=== PATIENT | female | born 1960 | race Caucasian/White ===

== ENCOUNTER → 2017-07-28 | Outpatient (CLI) | payer BC ==
--- NOTE | 2017-07-28 16:40 | XCELERA REPORT ---
[address] [address] Lower Extremity Arterial Evaluation Name: ALLEY ZABALA Age: 57 yrs Gender: Female : 1960 Patient Status: Outpatient Patient Location: Study Date: 07/28/2017 03:03 PM Procedure: A color flow and duplex scan of the lower extremity arteries was performed bilaterally with velocity and waveform anaylsis. Reason For Study: NUMBNESS, TINGLING Ordering Physician: JACQUELINE CRUZ Performed By: Lauren Valladares Measurements and Calculations Right Left MANAGER QUALITY SYSTEMS PSV 93.3 97.6 cm/sec Prox PFA PSV -55.6 -59.8 cm/sec Prox SFA PSV 99.7 95.8 cm/sec Mid SFA PSV -73.9 -74.6 cm/sec Dist SFA PSV -55.2 -48.6 cm/sec Prox Pop A PSV 40.6 46.0 cm/sec Dist CELSO PSV 51.2 58.9 cm/sec Dist ZMT OPERATOR PSV 44.5 40.5 cm/sec Abdirahman Pedis PSV 36.7 48.3 cm/sec Right Side Arterial Evaluation Normal velocity and triphasic waveforms noted from the Common Femoral artery to the infregeniculate vessels. 0 % stenosis. Ankle Brachial index is 1.2. Left Side Arterial Evaluation Normal velocity and triphasic waveforms noted from the Common Femoral artery to the infregeniculate vessels. 0 % stenosis. Ankle Brachial index is 1.1. Interpretation Summary No hemodynamically significant lesions in the bilateral lower extremities, on duplex imaging, at rest. : JACQUELINE CRUZ [place]
== END ==
LOC: SP 14:55
PROVIDERS: ATTEND Family Medicine
DX: R20.2 Paresthesia of skin (principal)
CPT/HCPCS: 93925

== ENCOUNTER 2018-04-19 11:41 | Emergency (ER) | payer BC ==
--- NOTE | 2018-04-19 12:35 | ER Document Report ---
ED Extremity Problem, Lower - General Chief Complaint: Leg Pain Stated Complaint: LEG PAIN Time Seen by Provider: 04/19/18 12:26 Mode of Arrival: Ambulatory Information source: Patient Notes: Chief complaint: Right leg swelling History of complain:( obtained from----patient) 57 years old female with a history of DVT, PE, on Xarelto, presents today with swelling over the right calf than feeling a palpable vein. Therefore present to the ED. No shortness of breath, denies any calf pain. No fever chills or other constitutional symptoms Onset: Gradual Duration: Last 2 days Severity: Moderate Quality: Sharp Context: As above Exacerbating factor and relieving factors: As above REVIEW OF SYSTEMS: CONSTITUTIONAL : Denies fever, chills, or sweats. Denies recent illness. EENT: Denies eye, ear, throat, or mouth pain or symptoms. Denies nasal or sinus congestion or discharge. Denies throat, tongue, or mouth swelling or difficulty swallowing. CARDIOVASCULAR: Denies chest pain. Denies palpitations or racing or irregular heart beat. Denies ankle edema. RESPIRATORY: Denies cough, cold, or chest congestion. Denies shortness of breath, difficulty breathing, or wheezing. GASTROINTESTINAL: Denies distention. Denies nausea, vomiting, or diarrhea. Denies blood in vomitus, stools, or per rectum. Denies black, tarry stools. Denies constipation. GENITOURINARY: Denies difficulty urinating, painful urination, burning, frequency, blood in urine, or discharge. FEMALE GENITOURINARY: Denies vaginal bleeding, heavy or abnormal periods, irregular periods. Denies vaginal discharge or odor. MUSCULOSKELETAL: Denies back or neck pain or stiffness. Denies joint pain or swelling. SKIN: Denies rash, lesions or sores. HEMATOLOGIC : Denies easy bruising or bleeding. LYMPHATIC: Denies swollen, enlarged glands. NEUROLOGICAL: Denies confusion or altered mental status. Denies passing out or loss of consciousness. Denies dizziness or lightheadedness. Denies headache. Denies weakness or paralysis or loss of use of either side. Denies problems with gait or speech. Denies sensory loss, numbness, or tingling. Denies seizures. PSYCHIATRIC: Denies anxiety or stress. Denies depression, suicidal ideation, or homicidal ideation. ALL OTHER SYSTEMS REVIEWED AND NEGATIVE. PHYSICAL EXAMINATION: GENERAL: Well-appearing, well-nourished and in no acute distress. HEAD: Atraumatic, normocephalic. EYES: Pupils equal round and reactive to light, extraocular movements intact, conjunctiva are normal. ENT: Nares patent, oropharynx clear without exudates. Moist mucous membranes. NECK: Normal range of motion, supple without lymphadenopathy LUNGS: Breath sounds clear to auscultation bilaterally and equal. No wheezes rales or rhonchi. HEART: Regular rate and rhythm without murmurs ABDOMEN: Soft, nontender, nondistended abdomen. No guarding, no rebound. No masses appreciated. Examination of genitals-deferred Musculoskeletal: Normal range of motion, no pitting or edema. No cyanosis. Right leg has a palpable superficial vein NEUROLOGICAL: Cranial nerves grossly intact. Normal speech, normal gait. Normal sensory, motor exams PSYCH: Normal mood, normal affect. SKIN: Warm, Dry, normal turgor, no rashes or lesions noted. Dictation was performed using [employer] voice recognition software TRAVEL OUTSIDE OF THE [place] IN LAST 30 DAYS: No - HPI Notes: Dictated - Related Data Allergies/Adverse Reactions: Penicillins Allergy (Verified 04/19/18 11:42) Past Medical History - Social History Smoking Status: Current Every Day Smoker Frequency of alcohol use: None Drug Abuse: None Lives with: Family Family History: Reviewed & Not Pertinent Patient has suicidal ideation: No Patient has homicidal ideation: No - Past Medical History Cardiac Medical History: Reports: Hx Hypertension Renal/ Medical History: Denies: Hx Peritoneal Dialysis - Immunizations Hx Diphtheria, Pertussis, Tetanus Vaccination: Yes Review of Systems - Review of Systems Notes: Dictated Physical Exam - Vital signs Vitals: Temp Pulse Resp BP Pulse Ox 98.1 F 84 16 141/92 H 97 04/19/18 11:44 04/19/18 11:44 04/19/18 11:44 04/19/18 11:44 04/19/18 11:44 - Notes Notes: Dictated Course - Vital Signs Vital signs: Temp Pulse Resp BP Pulse Ox 98.1 F 84 16 141/92 H 97 04/19/18 11:44 04/19/18 11:44 04/19/18 11:44 04/19/18 11:44 04/19/18 11:44 - Diagnostic Test Radiology reviewed: Reports reviewed - Doppler studies of the right leg did not show any DVT Discharge - Discharge Clinical Impression: Left leg swelling Condition: Fair Disposition: HOME, SELF-CARE Instructions: Possible Evolving Leg DVT ([facility]) Referrals: JACQUELINE CRUZ MD [Primary Care Provider] - Follow up as needed
--- NOTE | 2018-04-19 14:26 | RADIOLOGY REPORT (SQ) ---
EXAM DESCRIPTION: VENOUS UNILATERAL LOWER COMPLETED DATE/TIME: 04/19/2018 2:09 pm REASON FOR STUDY: DVT right leg COMPARISON: None. TECHNIQUE: Dynamic and static chang scale and color images acquired of the right leg venous system. S elected spectral images acquired with additional compression and augmentation maneuvers. The contrala teral common femoral vein and saphenofemoral junction were also imaged. Images stored on PACS. LIMITATIONS: None. FINDINGS: RIGHT COMMON FEMORAL: Normal phasicity, compression and augmentation. No visualized echogenic material on g ray scale. No defects on color images. FEMORAL: Normal compression and augmentation. No visualized echogenic material on chang scale. No defe cts on color images. POPLITEAL: Normal compression, augmentation. No visualized echogenic material on chang scale. No defec ts on color images. PERONEAL AND POSTERIOR TIBIAL VEINS: Normal compression, augmentation. No visualized echogenic materi al on chang scale. No defects on color images. GSV and SSV: Normal compression, augmentation. No visualized echogenic material on chang scale. No def ects on color images. ANY DEEP VENOUS INSUFFICIENCY: Not evaluated. ANY EVIDENCE OF POPLITEAL CYST: No. OTHER: No other significant finding. LEFT COMMON FEMORAL VEIN AND SAPHENOFEMORAL JUNCTION: Normal phasicity, compression and augmentation. No visualized echogenic material on chang scale. No de fects on color images. IMPRESSION: NO EVIDENCE OF DVT OR SVT IN THE RIGHT LEG. TECHNICAL DOCUMENTATION: JOB ID: [id number] [employer]- All Rights Reserved Reading location - IP/workstation name: [email or web address]
[2018-04-19 14:28] VITALS: BP 140/97
== END 2018-04-19 14:28 | disposition home or self-care (01) ==
LOC: ER 11:41
DX: M79.89 Other specified soft tissue disorders (principal); F17.200 Nicotine dependence, unspecified, uncomplicated; I10 Essential (primary) hypertension; I26.99 Other pulmonary embolism without acute cor pulmonale; I82.409 Acute embolism and thrombosis of unspecified deep veins of unspecified lower extremity; Z79.01 Long term (current) use of anticoagulants; Z88.0 Allergy status to penicillin
CPT/HCPCS: 93971; 99283

== ENCOUNTER 2018-07-19 17:03 | Emergency (ER) | payer BC ==
--- NOTE | 2018-07-19 18:34 | RADIOLOGY REPORT (SQ) ---
EXAM DESCRIPTION: CHEST 2 VIEWS COMPLETED DATE/TIME: 07/19/2018 6:12 pm REASON FOR STUDY: cough COMPARISON: 04/27/2016 TECHNIQUE: Frontal and lateral radiographic views of the chest acquired. NUMBER OF VIEWS: Two view. LIMITATIONS: None. FINDINGS: LUNGS AND PLEURA: No pneumothorax. Patchy consolidation in the right middle lobe. No ple ural effusion. MEDIASTINUM AND HILAR STRUCTURES: Stable. HEART AND VASCULAR STRUCTURES: Stable. BONES: No acute findings. HARDWARE: None in the chest. OTHER: No other significant finding. IMPRESSION: Patchy consolidation in the right middle lobe. No pleural effusion. TECHNICAL DOCUMENTATION: JOB ID: [id number] [id number] 2010 [employer]- All Rights Reserved Reading location - IP/workstation name: [email or web address]
--- NOTE | 2018-07-19 19:11 | ER Document Report ---
ED Medical Screen (RME) - General Chief Complaint: Productive Cough Stated Complaint: COUGHING UP BLOOD Time Seen by Provider: 07/19/18 19:00 Mode of Arrival: Ambulatory Information source: Patient Notes: 57-year-old female with hypertension, peripheral vascular disease, neuropathy, [id number] smoking history, pulmonary embolism (sometimes takes her Xarelto) presents with complaint of 3 weeks of cough that she describes as productive with hemoptysis that started today. Patient has had prior similar symptoms when diagnosed with a pulmonary embolism 2 years ago. She denies fever, chills, chest pain, shortness of breath. She states that she took a week's worth of Bactrim that she had leftover 2 weeks ago. Patient states that she has not been taking her Xarelto but started 2 days ago for the new year. And in triage does show a right middle lobe opacity. Ceftriaxone started for antibiotic coverage. Patient has not been hospitalized in the last 3 months. I have greeted and performed a rapid initial assessment of this patient. A comprehensive ED assessment and evaluation of the patient, analysis of test results and completion of medical decision making process we will be contacted by additional ED providers. PHYSICAL EXAMINATION: Vital signs reviewed-afebrile GENERAL: Well-appearing, well-nourished and in no acute distress. LUNGS: Coarse breath sounds bilaterally Musculoskeletal: Normal range of motion NEUROLOGICAL: Normal speech, normal gait. PSYCH: Normal mood, normal affect. SKIN: Warm, Dry, normal turgor, no rashes or lesions noted. TRAVEL OUTSIDE OF THE [place] IN LAST 30 DAYS: No - HPI Onset: Other Onset/Duration: Persistent Quality of pain: Burning Associated Symptoms: Body/muscle aches, Cough (productive). denies: Chest pain, Fever, Nausea, Shortness of breath Exacerbated by: Coughing Relieved by: Denies Similar symptoms previously: Yes Recently seen / treated by doctor: No - Related Data Smoking: Cigarettes Frequency of alcohol use: None Drug Abuse: None Allergies/Adverse Reactions: Penicillins Allergy (Verified 07/19/18 17:04) Past Medical History - Past Medical History Cardiac Medical History: Reports: Hx Hypertension Renal/ Medical History: Denies: Hx Peritoneal Dialysis - Immunizations Hx Diphtheria, Pertussis, Tetanus Vaccination: Yes Physical Exam - Vital signs Vitals: Temp Pulse Resp BP Pulse Ox 98.6 F 72 16 135/94 H 98 07/19/18 17:08 07/19/18 17:08 07/19/18 17:08 07/19/18 17:08 07/19/18 17:08 Course - Vital Signs Vital signs: Temp Pulse Resp BP Pulse Ox 98.6 F 72 16 135/94 H 98 07/19/18 17:08 07/19/18 17:08 07/19/18 17:08 07/19/18 17:08 07/19/18 17:08 Doctor's Discharge - Discharge Referrals: JACQUELINE CRUZ MD [Primary Care Provider] - Follow up as needed
[2018-07-19] MEDS ORDERED: CEFTRIAXONE 1 GM/D5W RTU 1 GM/50 ML RTUPB IV ONE (19:12)
[2018-07-19] MEDS ORDERED: IPRATROPIUM/ALBUTEROL 0.5-2.5 MG/3 ML AMPUL NEB ONE ×2 (19:13→21:53)
[2018-07-19 20:04] LABS: VENOUS BLOOD BASE EXCESS 5.2 mmol/L; VENOUS BLOOD HCO3 32.7 mmol/L (20-32); VENOUS BLOOD PCO2 57.9 mmHg (35-63); VENOUS BLOOD PH 7.37 (7.30-7.42)
[2018-07-19 20:11] LABS: ABSOLUTE EOSINOPHILS # (AUTO) 0.1 10^3/uL (0.0-0.6); ABSOLUTE MONOCYTES (AUTO) 0.8 10^3/uL (0.1-1.4); ABSOLUTE NEUT (AUTO) 8.5 10^3/uL (1.7-8.2); BASOPHILS % (AUTO) 0.2 % (0-2); EOSINOPHILS % (AUTO) 0.9 % (0-6); HEMATOCRIT 46.8 % (36.0-47.0); HEMOGLOBIN 16.3 g/dL (12.0-15.5); LYMPHOCYTES % (AUTO) 17.5 % (13-45); MEAN CORPUSCULAR HEMOGLOBIN 38.9 pg (27.0-33.4); MEAN CORPUSCULAR HGB CONC 34.8 g/dL (32.0-36.0); MONOCYTES % (AUTO) 6.6 % (3-13); PLATELET COUNT 209 10^3/uL (150-450); RED BLOOD COUNT 4.19 10^6/uL (3.72-5.28); RED CELL DISTRIBUTION WIDTH 15.6 % (11.5-14.0); SEGMENTED NEUTROPHILS % (AUTO) 74.8 % (42-78); TOTAL CELLS COUNTED % (AUTO) 100 %; WHITE BLOOD COUNT 11.4 10^3/uL (4.0-10.5)
[2018-07-19 20:25] LABS: MEAN CORPUSCULAR VOLUME 112 fl (80-97)
[2018-07-19 20:29] LABS: ALANINE AMINOTRANSFERASE 25 U/L (9-52); ALBUMIN 3.4 g/dL (3.5-5.0); ALKALINE PHOSPHATASE 96 U/L (38-126); ANION GAP 6 (5-19); ASPARTATE AMINO TRANSFERASE 31 U/L (14-36); BILIRUBIN,DIRECT 0.3 mg/dL (0.0-0.4); BILIRUBIN,TOTAL 1.6 mg/dL (0.2-1.3); BLOOD UREA NITROGEN 10 mg/dL (7-20); CALCIUM 8.8 mg/dL (8.4-10.2); CARBON DIOXIDE 32 mmol/L (22-30); CHLORIDE 96 mmol/L (98-107); GLUCOSE 104 mg/dL (75-110); POTASSIUM 4.3 mmol/L (3.6-5.0); TOTAL PROTEIN 6.5 g/dL (6.3-8.2)
[2018-07-19 20:36] LABS: ANISOCYTOSIS SLIGHT; PLATELET COMMENT ADEQUATE
[2018-07-19 20:37] LABS: PLATELET LARGE PRESENT; POIKILOCYTOSIS SLIGHT; TEAR DROP CELLS SLIGHT
[2018-07-19 20:40] LABS: POLYCHROMASIA SLIGHT
[2018-07-19 20:41] LABS: TARGET CELLS SLIGHT
--- NOTE | 2018-07-19 21:40 | RADIOLOGY REPORT (SQ) ---
CT CHEST ANGIOGRAPHY WITHOUT THEN WITH IV CONTRAST HISTORY: Shortness of breath. Evaluate for pulmonary embolism. COMPARISON: None. TECHNIQUE: CT angiogram of the chest with IV contrast. 3-D MIP images were obtained in coronal and sagittal reconstructions. This exam was performed according to our departmental dose-optimization program, which includes automated exposure control, adjustment of the mA and/or kV according to patient size and/or use of iterative reconstruction technique. FINDINGS: The thyroid gland is unremarkable. No mediastinal, hilar, or axillary adenopathy is seen. The heart size is normal. No pericardial effusion is seen. No acute pulmonary embolism is seen in the main or segmental branches. There is an area of groundglass opacity and consolidation in the right middle lobe suggesting infection. No pleural effusions or pneumothorax however. Limited views of the upper abdomen demonstrate a small hiatal hernia and hepatic steatosis. The osseous structures are intact. IMPRESSION: 1. No acute pulmonary embolism. 2. Consolidation in the right middle lobe suggesting pneumonia. 3. No pleural effusions or pneumothorax.
--- NOTE | 2018-07-19 21:46 | ER Document Report ---
ED General - General Chief Complaint: Productive Cough Stated Complaint: COUGHING UP BLOOD Time Seen by Provider: 07/19/18 19:00 Mode of Arrival: Ambulatory Notes: Patient is a 57-year-old female who presents to the emergency department with a chief complaint of coughing up blood. She states that she has had a cough for the past 3 weeks, but today she started coughing up blood. She states that there was a tinge of blood in her sputum. 2 years ago in April she had the same symptoms of coughing up blood, and was diagnosed with a blood clot. She is on Xarelto chronically, but stopped taking her Xarelto on her own and restarted taking her Xarelto yesterday. She denies any shortness of breath, vomiting, diarrhea, abdominal pain. She has a past medical history of hypertension, peripheral vascular disease, and tobacco abuse via smoking. She smokes half a pack a day and has been for the past 35 years. TRAVEL OUTSIDE OF THE [place] IN LAST 30 DAYS: No - Related Data Allergies/Adverse Reactions: Penicillins Allergy (Verified 07/19/18 17:04) Past Medical History - General Information source: Patient - Social History Smoking Status: Current Every Day Smoker Chew tobacco use (# tins/day): No Frequency of alcohol use: None Drug Abuse: None Family History: Reviewed & Not Pertinent Patient has suicidal ideation: No Patient has homicidal ideation: No - Past Medical History Cardiac Medical History: Reports: Hx Hypertension Renal/ Medical History: Denies: Hx Peritoneal Dialysis - Immunizations Hx Diphtheria, Pertussis, Tetanus Vaccination: Yes Review of Systems - Review of Systems Notes: REVIEW OF SYSTEMS: CONSTITUTIONAL : Denies recent illness. Denies recent unintentional weight loss. Denies fever, chills, or sweats. EENT: Denies eye, ear, throat, or mouth pain, discharge, or symptoms. Denies nasal or sinus congestion. CARDIOVASCULAR: Denies chest pain. RESPIRATORY: See HPI GASTROINTESTINAL: Denies nausea, vomiting, and diarrhea. Denies abdominal pain. Denies constipation. GENITOURINARY: Denies difficulty urinating, burning, blood in urine, urgency or frequency. MUSCULOSKELETAL: Denies neck and back pain. Denies joint pain or swelling. SKIN: Denies rash, itchiness, or lesions HEMATOLOGIC : Denies easy bruising or bleeding. LYMPHATIC: Denies swollen, painful, enlarged glands. NEUROLOGICAL: Denies no numbness or tingling denies weakness. Denies headache. Denies altered mental status. Denies alteration in speech. PSYCHIATRIC: Denies stress, anxiety, alteration in sleep patterns, or depression. All other systems reviewed and negative. Physical Exam - Vital signs Vitals: Temp Pulse Resp BP Pulse Ox 98.6 F 72 16 135/94 H 98 07/19/18 17:08 07/19/18 17:08 07/19/18 17:08 07/19/18 17:08 07/19/18 17:08 - Notes Notes: PHYSICAL EXAMINATION: GENERAL: Appears well, healthy, well-nourished, no acute distress. HEAD: Normocephalic, atraumatic. EYES: PERRL, conjunctiva normal, all extraocular movements intact, sclera nonicteric ENT: Moist mucous membranes. NECK: Supple, no noticeable swelling, redness, rash. Normal range of motion. LUNGS: Wheezes noted bilaterally. Coarse breath sounds to right posterior chest in the middle and lower lobes. CARDIOVASCULAR: S1-S2, regular rate, regular rhythm. Radial pulses 2+, normal. ABDOMEN: Normoactive bowel sounds. Soft, nontender, no guarding, no rebound tenderness, and no masses palpated. EXTREMITIES: Normal strength and range of motion, no pitting or edema. No cyanosis. NEUROLOGICAL: Moves all extremities upon command. Strength 5/5 in all extremities. PSYCH: Normal mood, normal affect. SKIN: Warm, dry. No rash, lesions, ulcerations noted. Normal skin turgor. Course - Re-evaluation Re-evalutation: Based off patient's history and physical, differential diagnosis includes pneumonia, pulmonary embolism, empyema, bronchitis. 07/19/18 21:49 Patient's chest x-ray shows she does have pneumonia to the right middle lobe. Her physical exam is consistent with this, with coarse breath sounds to the right middle lobe. She has received 1 DuoNeb treatment and I will order another treatment for her. 07/19/18 21:55 Patient's lung sounds have improved slightly after her second DuoNeb treatment. I suspect that she will not have complete resolution of her respiratory symptoms until she finishes a course of antibiotics. I have educated the patient on this. Patient's CT of the chest shows pneumonia to the right middle lobe also. There is no acute pulmonary embolism. These results have been given to the patient. She will be sent home on antibiotics. Her curb 65 score is 0. She is at low risk for mortality from community-acquired pneumonia. Verbal discharge instructions were given to the patient. They verbalized understanding. They are stable for discharge. - Vital Signs Vital signs: Temp Pulse Resp BP Pulse Ox 98.5 F 92 16 132/76 H 97 07/19/18 22:11 07/19/18 22:11 07/19/18 22:11 07/19/18 22:11 07/19/18 22:11 - Laboratory Result Diagrams: 07/19/18 19:37 07/19/18 19:37 Laboratory results interpreted by me: 07/19/18 07/19/18 07/19/18 19:37 19:37 19:37 WBC 11.4 H Hgb 16.3 H MCV 112 H MCH 38.9 H RDW 15.6 H Absolute Neutrophils 8.5 H VBG HCO3 32.7 H Sodium 134.0 L Chloride 96 L Carbon Dioxide 32 H Total Bilirubin 1.6 H Albumin 3.4 L Discharge - Discharge Clinical Impression: Cough Pneumonia Qualifiers: Pneumonia type: due to unspecified organism Laterality: right Lung location: middle lobe of lung Qualified Code(s): J18.1 - Lobar pneumonia, unspecified organism Condition: Stable Disposition: HOME, SELF-CARE Additional Instructions: He was seen today in the emergency department for coughing up blood. You have pneumonia. Your CT of your chest is normal. You do not have a blood clot in your lungs. You have been prescribed doxycycline, an antibiotic for your pneumonia. Please take this medication until it is gone. Even if you feel better, please continue to take the medication. Please follow-up with your primary care doctor in 3-5 days for follow-up. If you develop a fever greater than 100.4 F, have worsening symptoms, develop shortness of breath, or have any symptoms that are worrisome to you, please return to the emergency department. Please try to stop smoking, as this will not help your pneumonia. As we discussed, please try cutting back 1 cigarette a week to help you stop smoking. Prescriptions: RX: Doxycycline Hyclate 100 mg PO BID #14 capsule Referrals: JACQUELINE CRUZ MD [Primary Care Provider] - Follow up in 3-5 days
[2018-07-19] MEDS ORDERED: DOXYCYCLINE HYCLATE 100 MG TABLET PO ONE (21:54)
[2018-07-19 22:11] VITALS: BP 132/76
--- NOTE | 2018-07-20 13:36 | EKG REPORT ---
SEVERITY:- NORMAL ECG - SINUS RHYTHM : Confirmed by: Lisa Crum MD 20-Jul-2018 13:36:22
[2018-07-20 13:37] LABS: PATH REVIEW PATHOLOGIST REVIEWED
== END 2018-07-19 22:12 | disposition home or self-care (01) ==
LOC: ER 17:03
DX: J18.1 Lobar pneumonia, unspecified organism (principal); R04.2 Hemoptysis; I10 Essential (primary) hypertension; F17.210 Nicotine dependence, cigarettes, uncomplicated
CPT/HCPCS: 93005; 94640 ×2; 99284; 96365; 36415; 85025; 80053; 82803; 71046; 71275; 93010; J0696; J7620